=== PATIENT | female | born 2000 | race Caucasian/White ===

== ENCOUNTER → 2024-05-09 | Outpatient (CLI) | payer OTHER | LOC: LAB 09:31 → LAB SHORT 09:31 | PROVIDERS: Family Medicine | DX: Z01.419 Encounter for gynecological examination (general) (routine) without abnormal findings (principal) | CPT/HCPCS: G0123 ==

== ENCOUNTER → 2024-06-08 | Outpatient (CLI) | payer OTHER | LOC: LAB 17:25 → LAB SHORT 17:25 | DX: N39.0 Urinary tract infection, site not specified (principal); R31.9 Hematuria, unspecified | CPT/HCPCS: 87077; 87086; 87186 ==

== ENCOUNTER → 2024-08-23 | Outpatient (CLI) | payer OTHER ==
[2024-08-23 17:34] LABS: Bacterial Vaginosis PCR Negative (NEGATIVE); Candida glabrata-krusei, PCR NOT DETECTED (NOT DETECT)
[2024-08-23 17:55] LABS: Candida Group, PCR DETECTED (NOT DETECT)
== END ==
LOC: LAB 14:14 → LAB SHORT 14:14
PROVIDERS: Registered Nurse Community Health
DX: N89.8 Other specified noninflammatory disorders of vagina (principal)
CPT/HCPCS: 81515; 87070; 87077; 87186; 87205